=== PATIENT | female | born 1945 | race African-American/Black ===

== ENCOUNTER 2022-07-18 18:26 | Emergency (ER) | payer OTHER ==
[~2022-07-18] VITALS: Ht 175.3 cm; Wt 84.0 kg
[2022-07-18] MEDS ORDERED: AMLODIPINE 10MG TABLET PO ONE (19:30)
[2022-07-18] MEDS ORDERED: AMLODIPINE 5MG TABLET PO NR (19:30)
[2022-07-18 19:39] LABS: EOSINOPHILS % 2.4 % (0.0-5.0); HEMATOCRIT. 36.4 % (36.0-48.0); HEMOGLOBIN. 12.3 g/dL (12.0-16.0); LYMPHOCYTES % 43.4 % (20.0-50.0); MEAN CORPUSCULAR HEMOGLOBIN 31.5 pg (28.0-32.0); MEAN CORPUSCULAR VOLUME 93.5 fL (81.0-99.0); MONOCYTES % 9.3 % (2.0-8.0); NEUTROPHILS % 43.9 % (40.0-76.0); PLATELET 173 x1000/uL (130-400); RED BLOOD CELL COUNT 3.89 mill/uL (4.2-5.4); RED CELL DISTRIBUTION WIDTH 12.9 % (11.6-14.6)
[2022-07-18 19:46] LABS: CHLORIDE 108 mEq/L (98-107)
[2022-07-18] MEDS ORDERED: AMLO10TA4 MT (21:00)
[2022-07-18 23:00] VITALS: BP 169/85
== END 2022-07-18 23:56 | disposition home or self-care (01) ==
LOC: ER 18:26
DX: I16.0 Hypertensive urgency (principal); I10 Essential (primary) hypertension
CPT/HCPCS: 36415; 80053; 85025; 93005; 99285